=== PATIENT | female | born 1930 | race Caucasian/White ===

== ENCOUNTER 2016-12-09 08:06 | Day surgery (SDC) | payer MEDICARE, MEDICAID ==
[~2016-12-09 08:06] MED LIST: ACETAMINOPHEN 1,000 MG/100 ML BTL IV ONE
[2016-12-09] MEDS ORDERED: BUPIVACAINE 0.25% W/EPI MPF 30ML VIAL IVP ONE (12:42)
[2016-12-09] MEDS ORDERED: *PACU ONLY* KETAMINE HCL 10 MG/ML (20ML) VIAL IV ONE (14:00)
[2016-12-09] MEDS ORDERED: PROPOFOL 10 MG/ML VIAL IV ONE (14:00)
--- NOTE | 2016-12-12 06:01 | Operative Note ---
DATE OF SURGERY: 12/09/2016 Surgeon: Ari Guardado DO PREOPERATIVE DIAGNOSIS: Basal cell cancer, forehead. POSTOPERATIVE DIAGNOSIS: Basal cell cancer, forehead. OPERATION: Wide excision of basal cell cancer, forehead. Indication: The patient is an 86-year-old female who had a recent diagnosis of basal cell cancer on her forehead. We did discuss observation versus wide excision. The patient and the patient's daughter desired wide excision. Risks include bleeding, infection, unfavorable cosmetic outcome, issue with positive margins. She understood this fully. Thereafter, consent signed, questions answered. PROCEDURE: The patient was taken to the operating room and placed in a supine position. Local and IV sedation was given per the department of anesthesia. The patient's forehead was prepped and draped in the usual fashion. The area around the basal cell was shaved of hair and prepped and draped. It was anesthetized with a total of 3 mL of 0.25% Sensorcaine with epinephrine. At this time, an elliptical incision was made measuring about 4 x 2 cm. This was carried down to the subcutaneous tissue with cautery. This was then passed off the field. The wound was closed with 3-0 Vicryl and 3-0 nylon. Triple antibiotic ointment was placed. She was taken to the recovery room in satisfactory condition. FINDINGS AT THE TIME OF SURGERY: Basal cell cancer excised as above. CC: Racheal CHEEMA
== END 2016-12-09 11:48 | disposition home or self-care (01) ==
LOC: SUR 08:06
PROVIDERS: ATTEND Surgery
DX: C44.319 Basal cell carcinoma of skin of other parts of face (principal); I48.91 Unspecified atrial fibrillation; Z79.01 Long term (current) use of anticoagulants; I10 Essential (primary) hypertension; E11.9 Type 2 diabetes mellitus without complications; Z79.4 Long term (current) use of insulin; M10.9 Gout, unspecified; I50.9 Heart failure, unspecified